=== PATIENT | female | born 1985 | race Caucasian/White ===

== ENCOUNTER 2020-01-02 15:43 | Emergency (ER) | payer SELFPAY ==
[~2020-01-02] VITALS: Ht 160 cm; Wt 49.1 kg
[2020-01-02 15:47] VITALS: TEMP 98.7
[2020-01-02] MEDS ORDERED: VOLTAREN 75 DR75 MG PO (18:05)
[2020-01-02] MEDS ORDERED: FLEXERIL 1010 MG/TAB PO (18:06)
[2020-01-02] MEDS ORDERED: TYLENOL 500MG500 MG PO (18:06)
[2020-01-02] MEDS ORDERED: PROAIR HFA0.09 MG/AC IH (18:07)
[2020-01-02] MEDS ORDERED: ATARAX 25MG25 MG/TAB PO (18:07)
[2020-01-02] MEDS ORDERED: URISTAT ULTRA99.5 MG PO (18:08)
[2020-01-02] MEDS ORDERED: BENTYL 10MG10 MG/CAP PO (18:08)
[2020-01-02] MEDS ORDERED: ASPIRIN E.C. 8181 MG PO (18:09)
[2020-01-02] MEDS ORDERED: PRILOSEC 20MG20 MG PO (18:09)
[2020-01-02] MEDS ORDERED: TENORMIN 2525 MG/TAB PO (18:09)
[2020-01-02] MEDS ORDERED: LANOXIN 0.120.125 MG PO (18:10)
[2020-01-02] MEDS ORDERED: VALTREX1 GM PO (18:10)
[2020-01-02] MEDS ORDERED: ZYRTEC 10MG10 MG PO (18:11)
[2020-01-02] MEDS ORDERED: NATURAL POTASS595 MG (18:11)
[2020-01-02] MEDS ORDERED: ZOFRAN 4MG T4 MG/TAB PO (18:12)
[2020-01-02] MEDS ORDERED: VITAMIN D31000 I1 PO (18:12)
[2020-01-02] MEDS ORDERED: NORCO 325 MG-51 TAB PO (18:22)
[2020-01-02 18:35] VITALS: BP 100/75; PULSE 74
== END 2020-01-02 18:38 | disposition home or self-care (01) ==
LOC: COL.ER 15:43
DX: M25.552 Pain in left hip (principal); G89.29 Other chronic pain; F17.200 Nicotine dependence, unspecified, uncomplicated; Z90.710 Acquired absence of both cervix and uterus; F41.9 Anxiety disorder, unspecified; Z88.6 Allergy status to analgesic agent; Z88.1 Allergy status to other antibiotic agents; Z79.82 Long term (current) use of aspirin

== ENCOUNTER 2020-07-19 09:47 | Emergency (ER) | payer OTHER ==
[~2020-07-19] VITALS: Ht 160 cm; Wt 46.8 kg
[~2020-07-19 09:47] MED LIST: ASPIRIN E.C. 8181 MG PO; ATARAX 25MG25 MG/TAB PO; BENTYL 10MG10 MG/CAP PO; FLEXERIL 1010 MG/TAB PO; LANOXIN 0.120.125 MG PO; NATURAL POTASS595 MG; NORCO 325 MG-51 TAB PO; PRILOSEC 20MG20 MG PO; PROAIR HFA0.09 MG/AC IH; TENORMIN 2525 MG/TAB PO; TYLENOL 500MG500 MG PO; URISTAT ULTRA99.5 MG PO; VALTREX1 GM PO; VITAMIN D31000 I1 PO; VOLTAREN 75 DR75 MG PO; ZOFRAN 4MG T4 MG/TAB PO; ZYRTEC 10MG10 MG PO
[2020-07-19 10:00] VITALS: TEMP 97.5
[2020-07-19 10:47] LABS: BASO % 0.7 % (0.0-2.0); EOS # 0.1 (0.0-0.7); EOS % 1.6 % (0-4.0); GRAN # 2.6 (1.4-6.5); GRAN % 58.8 % (42.2-75.2); HEMATOCRIT 43.5 % (37.0-47.0); HEMOGLOBIN 15.3 g/dl (12.5-16.0); LYMPH # 1.4 (1.2-3.4); LYMPH % 31.3 % (20.0-51.0); MEAN CELL VOLUME 93 fl (80.0-100.0); MEAN CORPUSCULAR HEMOGLOBIN 33 pg (27.0-31.0); MEAN CORPUSCULAR HGB CONC 35 g/dl (33.0-37.0); MEAN PLATELET VOLUME 10.8 fl (7.4-10.4); MONO # 0.3 (0.1-0.6); MONO % 7.4 % (1.7-9.3); PLATELET COUNT 282 K/mm3 (130-400); RED BLOOD COUNT 4.66 M/mm3 (4.10-5.30); REDCELL DISTRIBUTION WIDTH-CV 11.3 % (11.5-14.5)
[2020-07-19 10:57] LABS: ALBUMIN 4.4 gm/dL (3.5-5.0); BILIRUBIN,TOTAL 1.9 mg/dL (0.0-1.0); CALCIUM 9.6 mg/dL (8.4-10.2); CREATININE, serum 0.63 (0.52-1.25); POTASSIUM 4.3 mmol/L (3.4-5.0); TOTAL PROTEIN 7.4 gm/dL (6.4-8.2)
[2020-07-19] MEDS ORDERED: DOXYCYCLINE 10100 MG PO (11:45)
[2020-07-19 11:53] VITALS: BP 96/72; PULSE 68
== END 2020-07-19 11:54 | disposition home or self-care (01) ==
LOC: COL.ER 09:47
PROVIDERS: Physician Assistant
DX: J18.9 Pneumonia, unspecified organism (principal); F17.200 Nicotine dependence, unspecified, uncomplicated; Z20.822 Contact with and (suspected) exposure to COVID-19; Z88.1 Allergy status to other antibiotic agents; Z88.6 Allergy status to analgesic agent; Z88.8 Allergy status to other drugs, medicaments and biological substances; Z79.82 Long term (current) use of aspirin

== ENCOUNTER 2020-12-19 19:42 | Emergency (ER) | payer BC ==
[~2020-12-19] VITALS: Ht 160 cm; Wt 41.4 kg
[~2020-12-19 19:42] MED LIST changes: +DOXYCYCLINE 10100 MG PO
[2020-12-19 20:30] LABS: COLLECTION METHOD CLEAN CATCH
[2020-12-19 20:35] LABS: BASO % 0.7 % (0.0-2.0); EOS # 0.1 (0.0-0.7); EOS % 1.7 % (0-4.0); GRAN # 2.7 (1.4-6.5); GRAN % 50.4 % (42.2-75.2); HEMOGLOBIN 14.3 g/dl (12.5-16.0); LYMPH # 2.1 (1.2-3.4); LYMPH % 39.3 % (20.0-51.0); MEAN CELL VOLUME 92 fl (80.0-100.0); MEAN CORPUSCULAR HEMOGLOBIN 33 pg (27.0-31.0); MEAN CORPUSCULAR HGB CONC 36 g/dl (33.0-37.0); MEAN PLATELET VOLUME 10.3 fl (7.4-10.4); MONO # 0.4 (0.1-0.6); MONO % 7.7 % (1.7-9.3); PLATELET COUNT 269 K/mm3 (130-400); RED BLOOD COUNT 4.33 M/mm3 (4.10-5.30); REDCELL DISTRIBUTION WIDTH-CV 11.6 % (11.5-14.5)
[2020-12-19 20:39] LABS: MUCOUS Present /lpf; PH 5 (5-8); SQUAMOUS EPITHELIAL 0-2 /hpf; URINE APPEARANCE Clear; URINE BACTERIA Rare /hpf; URINE BILIRUBIN Negative (NEGATIVE); URINE BLOOD Negative (NEGATIVE); URINE COLOR Yellow; URINE GLUCOSE Negative (NEGATIVE); URINE KETONE 1+ (NEGATIVE); URINE LEUKOCYTE ESTERASE Negative (NEGATIVE); URINE NITRATE Negative (NEGATIVE); URINE PROTEIN(semi-quant) 1+ (NEGATIVE); URINE RBC 0-2 /hpf; URINE UROBILINOGEN Negative (NEGATIVE)
[2020-12-19 20:48] LABS: ALANINE AMINOTRANSFERASE 11 U/L (4-34); ALBUMIN 4.4 gm/dL (3.5-5.0); ALKALINE PHOSPHATASE 71 U/L (50-136); ANION GAP 9 mmol/L (7-16); AST,SGOT 21 U/L (15-37); BILIRUBIN,TOTAL 1.8 mg/dL (0.0-1.0); BLOOD UREA NITROGEN 12 mg/dL (7-17); CALCIUM 9.3 mg/dL (8.4-10.2); CARBON DIOXIDE 21 mmol/L (22-30); CHLORIDE 111 mmol/L (98-107); GLUCOSE 83 mg/dL (74-106); LIPASE 54 U/L (23-300); POTASSIUM 3.1 mmol/L (3.4-5.0); SODIUM 141 mmol/L (137-145); TOTAL PROTEIN 7.3 gm/dL (6.4-8.2)
[2020-12-19 20:49] LABS: C-REACTIVE PROTEIN < 0.5 mg/dL (0.0-0.9)
[2020-12-19 20:58] LABS: TROPONIN-I < 0.012 ng/mL (0.000-0.035)
[2020-12-19] MEDS ORDERED: K-DUR20 MEQ PO (21:35)
[2020-12-19 22:06] VITALS: BP 92/68; PULSE 87; TEMP 97.9
== END 2020-12-19 22:09 | disposition home or self-care (01) ==
LOC: COL.ER 19:42
PROVIDERS: Nurse Practitioner Primary Care
DX: E87.6 Hypokalemia (principal); F41.9 Anxiety disorder, unspecified; F31.9 Bipolar disorder, unspecified; Z20.822 Contact with and (suspected) exposure to COVID-19; Z79.82 Long term (current) use of aspirin
CPT/HCPCS: J7030

== ENCOUNTER 2021-04-09 20:28 | Emergency (ER) | payer BC ==
[~2021-04-09] VITALS: Ht 160 cm; Wt 40.9 kg
[~2021-04-09 20:28] MED LIST changes: +K-DUR20 MEQ PO
[2021-04-09 21:01] LABS: BASO % 0.6 % (0.0-2.0); EOS # 0.1 K/mm3 (0.0-0.7); EOS % 1.2 % (0.0-4.0); GRAN # 3.9 K/mm3 (1.4-6.5); GRAN % 56.8 % (42.2-75.2); HEMATOCRIT 40.8 % (37.0-47.0); LYMPH # 2.2 K/mm3 (1.2-3.4); MEAN CELL VOLUME 89 fl (80.0-100.0); MEAN CORPUSCULAR HEMOGLOBIN 33 pg (27-31); MEAN CORPUSCULAR HGB CONC 37 g/dl (33.0-37.0); MEAN PLATELET VOLUME 10.4 fl (7.4-10.4); MONO # 0.6 K/mm3 (0.1-0.6); MONO % 9.1 % (1.7-9.3); PLATELET COUNT 337 K/mm3 (130-400); RED BLOOD COUNT 4.61 M/mm3 (4.10-5.30); REDCELL DISTRIBUTION WIDTH-CV 11.6 % (11.5-14.5)
[2021-04-09 21:19] LABS: ALBUMIN 4.2 gm/dL (3.5-5.0); BILIRUBIN,TOTAL 1.5 mg/dL (0.2-1.2); CALCIUM 8.8 mg/dL (8.4-10.2); CREATININE, serum 0.69 mg/dL (0.57-1.11); POTASSIUM 3.4 mmol/L (3.5-4.5); TOTAL PROTEIN 6.9 gm/dL (6.2-8.1)
[2021-04-09] MEDS ORDERED: ZOFRAN ODT4 MG PO (22:30)
[2021-04-09 23:03] VITALS: BP 109/73; PULSE 80; TEMP 98.3
== END 2021-04-09 23:05 | disposition home or self-care (01) ==
LOC: COL.ER 20:28
PROVIDERS: Emergency Medicine
DX: R10.84 Generalized abdominal pain (principal); R06.02 Shortness of breath; F41.9 Anxiety disorder, unspecified; F31.9 Bipolar disorder, unspecified; Z20.822 Contact with and (suspected) exposure to COVID-19; Z79.899 Other long term (current) drug therapy
CPT/HCPCS: J2270; J2405; J7030; Q9967

== ENCOUNTER → 2021-04-21 | Outpatient (CLI) | payer BC ==
[~2021-04-21] MED LIST changes: +ZOFRAN ODT4 MG PO
== END ==
LOC: MC.RAD 13:00
DX: N60.02 Solitary cyst of left breast (principal)

== ENCOUNTER 2021-04-24 12:07 | Emergency (ER) | payer BC ==
[~2021-04-24] VITALS: Ht 160 cm; Wt 40.9 kg
[2021-04-24 13:58] LABS: COLLECTION METHOD CLEAN CATCH
[2021-04-24 14:08] LABS: PH 6 (5-8); SQUAMOUS EPITHELIAL 0-2 /hpf (0-10); URINE APPEARANCE Clear (CLEAR/HAZY); URINE BACTERIA None Seen /hpf (NONE SEEN); URINE BILIRUBIN Negative (NEGATIVE); URINE BLOOD 1+ (NEGATIVE); URINE COLOR Yellow (YELLOW); URINE GLUCOSE Negative (NEGATIVE); URINE KETONE Negative (NEGATIVE); URINE LEUKOCYTE ESTERASE Negative (NEGATIVE); URINE NITRATE Negative (NEGATIVE); URINE PROTEIN(semi-quant) Negative (NEGATIVE)
[2021-04-24 14:10] LABS: MUCOUS Present (NOT PRESENT)
[2021-04-24 14:27] VITALS: TEMP 98.6
[2021-04-24 15:22] VITALS: BP 88/73; PULSE 79
== END 2021-04-24 15:23 | disposition home or self-care (01) ==
LOC: COL.ER 12:07
PROVIDERS: Nurse Practitioner Primary Care
DX: B34.9 Viral infection, unspecified (principal); Z20.822 Contact with and (suspected) exposure to COVID-19; Z88.1 Allergy status to other antibiotic agents
CPT/HCPCS: J7030

== ENCOUNTER → 2021-05-10 | Outpatient (CLI) | payer BC | LOC: MC.RAD 09:48 | DX: N60.02 Solitary cyst of left breast (principal) ==

== ENCOUNTER 2021-08-24 20:48 | Emergency (ER) | payer OTHER ==
[~2021-08-24] VITALS: Ht 160 cm; Wt 38.6 kg
[2021-08-24 20:48] VITALS: TEMP 98.9
[2021-08-24 21:25] LABS: BASO # 0.1 K/mm3 (0.0-0.2); BASO % 0.8 % (0.0-2.0); EOS # 0.2 K/mm3 (0.0-0.7); GRAN % 54.8 % (42.2-75.2); HEMATOCRIT 42.1 % (37.0-47.0); HEMOGLOBIN 15.4 g/dl (12.5-16.0); LYMPH # 2.4 K/mm3 (1.2-3.4); LYMPH % 32.8 % (20.0-51.0); MEAN CELL VOLUME 90 fl (80.0-100.0); MEAN CORPUSCULAR HEMOGLOBIN 33 pg (27-31); MEAN CORPUSCULAR HGB CONC 37 g/dl (33.0-37.0); MEAN PLATELET VOLUME 10.1 fl (7.4-10.4); MONO # 0.7 K/mm3 (0.1-0.6); MONO % 9.3 % (1.7-9.3); PLATELET COUNT 320 K/mm3 (130-400); RED BLOOD COUNT 4.69 M/mm3 (4.10-5.30); REDCELL DISTRIBUTION WIDTH-CV 11.1 % (11.5-14.5)
[2021-08-24 21:27] LABS: INR 1.1 (0.8-3.0); PROTHROMBIN TIME 12.8 SECONDS (9.7-12.8)
[2021-08-24 21:41] LABS: ALBUMIN 4.5 gm/dL (3.5-5.0); CALCIUM 9.3 mg/dL (8.4-10.2); CREATININE, serum 0.72 mg/dL (0.57-1.11); POTASSIUM 3.8 mmol/L (3.5-4.5); TOTAL PROTEIN 7.6 gm/dL (6.2-8.1)
[2021-08-24 22:14] VITALS: BP 97/76; PULSE 63
== END 2021-08-24 22:14 | disposition home or self-care (01) ==
LOC: COL.ER 20:48
PROVIDERS: Emergency Medicine
DX: R20.0 Anesthesia of skin (principal); R51.9 Headache, unspecified; Z87.891 Personal history of nicotine dependence; Z28.311 Partially vaccinated for COVID-19
CPT/HCPCS: J7040

== ENCOUNTER 2021-09-22 14:27 | Emergency (ER) | payer SELFPAY ==
[~2021-09-22] VITALS: Ht 160 cm; Wt 45.5 kg
[2021-09-22 15:26] VITALS: TEMP 98.3
[2021-09-22 17:50] VITALS: BP 115/85; PULSE 76
== END 2021-09-22 17:50 | disposition home or self-care (01) ==
LOC: COL.ER 14:27
DX: M79.605 Pain in left leg (principal); M25.552 Pain in left hip; M54.50 Low back pain, unspecified; G89.29 Other chronic pain; Z79.891 Long term (current) use of opiate analgesic; Z98.890 Other specified postprocedural states

== ENCOUNTER 2021-09-24 14:12 | Emergency (ER) | payer SELFPAY ==
[~2021-09-24] VITALS: Ht 160 cm; Wt 45.5 kg
[2021-09-24 14:16] VITALS: BP 108/76; PULSE 96; TEMP 98
[2021-09-24] MEDS ORDERED: NORCO 325 MG-51 TAB PO (15:22)
== END 2021-09-24 15:36 | disposition home or self-care (01) ==
LOC: COL.ER 14:12
DX: M54.50 Low back pain, unspecified (principal); Z87.891 Personal history of nicotine dependence

== ENCOUNTER 2021-11-04 09:23 | Emergency (ER) | payer SELFPAY ==
[~2021-11-04] VITALS: Ht 154.9 cm; Wt 45.5 kg
[2021-11-04 09:32] VITALS: BP 115/77; TEMP 97.8
[2021-11-04] MEDS ORDERED: AMOXICILLIN 50500 MG PO (09:55)
[2021-11-04 10:28] VITALS: PULSE 65
== END 2021-11-04 10:28 | disposition home or self-care (01) ==
LOC: COL.ER 09:23
DX: J20.9 Acute bronchitis, unspecified (principal)

== ENCOUNTER 2021-11-28 10:02 | Emergency (ER) | payer SELFPAY ==
[~2021-11-28] VITALS: Ht 160 cm; Wt 45.5 kg
[~2021-11-28 10:02] MED LIST changes: +AMOXICILLIN 50500 MG PO
[2021-11-28 10:11] VITALS: TEMP 98.3
[2021-11-28 13:33] LABS: ALBUMIN 4.4 gm/dL (3.5-5.0); CALCIUM 9.6 mg/dL (8.4-10.2); CREATININE, serum 0.7 mg/dL (0.57-1.11); MAGNESIUM 2.1 mg/dL (1.6-2.6); PHOSPHOROUS 2.1 mg/dL (2.3-4.7); POTASSIUM 3.7 mmol/L (3.5-4.5)
[2021-11-28 13:38] LABS: BASO % 0.6 % (0.0-2.0); EOS # 0.1 K/mm3 (0.0-0.7); EOS % 1.8 % (0.0-4.0); GRAN % 54.8 % (42.2-75.2); HEMATOCRIT 42.9 % (37.0-47.0); HEMOGLOBIN 15.2 g/dl (12.5-16.0); LYMPH # 1.7 K/mm3 (1.2-3.4); LYMPH % 31.1 % (20.0-51.0); MEAN CELL VOLUME 92 fl (80.0-100.0); MEAN CORPUSCULAR HEMOGLOBIN 33 pg (27-31); MEAN CORPUSCULAR HGB CONC 35 g/dl (33.0-37.0); MEAN PLATELET VOLUME 9.8 fl (7.4-10.4); MONO # 0.6 K/mm3 (0.1-0.6); MONO % 11.1 % (1.7-9.3); PLATELET COUNT 311 K/mm3 (130-400); RED BLOOD COUNT 4.66 M/mm3 (4.10-5.30)
[2021-11-28 14:16] LABS: ERYTHROCYTE SEDIMENTATION RATE 1 mm/hr (0-20)
[2021-11-28] MEDS ORDERED: PEPCID 20MG TAB20 MG PO (14:32)
[2021-11-28] MEDS ORDERED: PREDNISONE20 MG PO (14:32)
[2021-11-28] MEDS ORDERED: NAPROSYN500 MG PO (14:32)
[2021-11-28 15:19] VITALS: BP 110/68; PULSE 71
[2021-11-29 12:37] LABS: ANA SCREEN with REFLEX Negative (Negative)
== END 2021-11-28 15:27 | disposition home or self-care (01) ==
LOC: COL.ER 10:02
PROVIDERS: Emergency Medicine
DX: M19.032 Primary osteoarthritis, left wrist (principal); M19.031 Primary osteoarthritis, right wrist
CPT/HCPCS: J1885; J7512

== ENCOUNTER 2021-12-16 13:48 | Emergency (ER) | payer SELFPAY ==
[~2021-12-16] VITALS: Ht 160 cm; Wt 45.5 kg
[~2021-12-16 13:48] MED LIST changes: +NAPROSYN500 MG PO; +PEPCID 20MG TAB20 MG PO; +PREDNISONE20 MG PO
[2021-12-16 13:51] VITALS: TEMP 98.3
[2021-12-16 14:59] VITALS: BP 100/73; PULSE 61
== END 2021-12-16 14:59 | disposition home or self-care (01) ==
LOC: COL.ER 13:48
DX: U07.1 COVID-19 (principal); J90 Pleural effusion, not elsewhere classified; Z87.891 Personal history of nicotine dependence; Z73.0 Burn-out

== ENCOUNTER 2021-12-31 15:19 | Emergency (ER) | payer MEDICAID ==
[~2021-12-31] VITALS: Ht 160 cm; Wt 45.5 kg
[2021-12-31 15:23] VITALS: TEMP 98
[2021-12-31 15:59] LABS: BASO % 0.7 % (0.0-2.0); EOS # 0.1 K/mm3 (0.0-0.7); EOS % 2.8 % (0.0-4.0); GRAN # 2.4 K/mm3 (1.4-6.5); GRAN % 52.1 % (42.2-75.2); HEMATOCRIT 39.5 % (37.0-47.0); HEMOGLOBIN 14.2 g/dl (12.5-16.0); LYMPH # 1.5 K/mm3 (1.2-3.4); LYMPH % 32.7 % (20.0-51.0); MEAN CELL VOLUME 91 fl (80.0-100.0); MEAN CORPUSCULAR HEMOGLOBIN 33 pg (27-31); MEAN CORPUSCULAR HGB CONC 36 g/dl (33.0-37.0); MEAN PLATELET VOLUME 10.1 fl (7.4-10.4); MONO # 0.5 K/mm3 (0.1-0.6); MONO % 11.5 % (1.7-9.3); PLATELET COUNT 331 K/mm3 (130-400); RED BLOOD COUNT 4.32 M/mm3 (4.10-5.30); REDCELL DISTRIBUTION WIDTH-CV 11.2 % (11.5-14.5)
[2021-12-31 16:09] LABS: ALANINE AMINOTRANSFERASE 14 U/L (0-55); ALBUMIN 4.3 gm/dL (3.5-5.0); ALKALINE PHOSPHATASE 76 U/L (40-150); ANION GAP 10 mmol/L (7-16); AST,SGOT 18 U/L (5-34); BILIRUBIN,TOTAL 1.8 mg/dL (0.2-1.2); BLOOD UREA NITROGEN 11 mg/dL (7-19); CALCIUM 9.6 mg/dL (8.4-10.2); CARBON DIOXIDE 23 mmol/L (22-29); CHLORIDE 108 mmol/L (98-107); CREATININE, serum 0.71 mg/dL (0.57-1.11); GLUCOSE 84 mg/dL (70-99); POTASSIUM 3.7 mmol/L (3.5-4.5); SODIUM 141 mmol/L (136-145); TOTAL PROTEIN 7.2 gm/dL (6.2-8.1)
[2021-12-31 16:15] LABS: TROPONIN-I < 0.010 ng/mL (0.00-0.033)
[2021-12-31 17:15] VITALS: BP 101/61; PULSE 52
== END 2021-12-31 17:20 | disposition home or self-care (01) ==
LOC: COL.ER 15:19
PROVIDERS: Nurse Practitioner
DX: I95.9 Hypotension, unspecified (principal); R07.2 Precordial pain; Z87.891 Personal history of nicotine dependence
CPT/HCPCS: J7030

== ENCOUNTER 2023-01-20 17:55 | Emergency (ER) | payer MEDICAID ==
[~2023-01-20] VITALS: Ht 160 cm; Wt 48.2 kg
[~2023-01-20 17:55] MED LIST changes: +CYMBALTA 20MG20 MG PO; +LYRICA 75MG CAP75 MG PO; +PRENATAL
[2023-01-20 17:57] VITALS: TEMP 97.7
[2023-01-20] MEDS ORDERED: MEDROL 4MG DOSPA4 MG PO (19:00)
[2023-01-20 19:11] VITALS: BP 108/74; PULSE 76
== END 2023-01-20 19:11 | disposition home or self-care (01) ==
LOC: COL.ER 17:55
DX: M54.16 Radiculopathy, lumbar region (principal); Z79.899 Other long term (current) drug therapy

== ENCOUNTER 2023-03-15 17:23 | Emergency (ER) | payer MEDICAID ==
[~2023-03-15] VITALS: Ht 160 cm; Wt 51.4 kg
[~2023-03-15 17:23] MED LIST changes: +MEDROL 4MG DOSPA4 MG PO
[2023-03-15 17:25] VITALS: TEMP 98.9
[2023-03-15 18:24] LABS: BASO % 0.7 % (0.0-2.0); EOS # 0.2 K/mm3 (0.0-0.7); EOS % 3.1 % (0.0-4.0); GRAN % 54.6 % (42.2-75.2); HEMATOCRIT 39.1 % (37.0-47.0); HEMOGLOBIN 13.9 g/dl (12.5-16.0); LYMPH # 1.8 K/mm3 (1.2-3.4); LYMPH % 32.4 % (20.0-51.0); MEAN CELL VOLUME 92 fl (80.0-100.0); MEAN CORPUSCULAR HEMOGLOBIN 33 pg (27-31); MEAN CORPUSCULAR HGB CONC 36 g/dl (33.0-37.0); MEAN PLATELET VOLUME 10.4 fl (7.4-10.4); MONO # 0.5 K/mm3 (0.1-0.6); PLATELET COUNT 369 K/mm3 (130-400); RED BLOOD COUNT 4.23 M/mm3 (4.10-5.30); REDCELL DISTRIBUTION WIDTH-CV 12.1 % (11.5-14.5)
[2023-03-15 18:27] LABS: COLLECTION METHOD CLEAN CATCH
[2023-03-15 18:44] LABS: ALBUMIN 3.9 gm/dL (3.5-5.0); BILIRUBIN,TOTAL 1.1 mg/dL (0.2-1.2); CALCIUM 8.9 mg/dL (8.4-10.2); CREATININE, serum 0.7 mg/dL (0.57-1.11); POTASSIUM 3.4 mmol/L (3.5-4.5); TOTAL PROTEIN 6.9 gm/dL (6.2-8.1)
[2023-03-15 18:45] LABS: URINE APPEARANCE Clear (CLEAR/HAZY); URINE COLOR Yellow (YELLOW)
[2023-03-15 18:46] LABS: URINE BACTERIA None Seen /hpf (NONE SEEN); URINE BLOOD Negative (NEGATIVE); URINE GLUCOSE Negative (NEGATIVE); URINE KETONE Negative (NEGATIVE); URINE NITRATE Negative (NEGATIVE); URINE PROTEIN(semi-quant) Negative (NEGATIVE); URINE RBC None Seen /hpf (0-2); URINE UROBILINOGEN 0.2 E.U/dL (0.2-1.0)
[2023-03-15 19:39] VITALS: BP 124/83; PULSE 92
== END 2023-03-15 19:45 | disposition home or self-care (01) ==
LOC: COL.ER 17:23
PROVIDERS: Physician Assistant
DX: G43.809 Other migraine, not intractable, without status migrainosus (principal)
CPT/HCPCS: J0780; J1885; J7030

== ENCOUNTER 2023-05-17 18:16 | Emergency (ER) | payer MEDICAID ==
[~2023-05-17] VITALS: Ht 160 cm; Wt 52.3 kg
[2023-05-17 18:24] VITALS: BP 124/81
[2023-05-17] MEDS ORDERED: PREDNISONE50 MG PO (19:04)
[2023-05-17] MEDS ORDERED: Ketorolac 30 MG/ML VIAL IM ONE (19:15)
[2023-05-17 20:02] VITALS: PULSE 87; TEMP 97.9
[2023-05-20] MEDS ORDERED: DOXYCYCLINE HY100 MG PO (04:06)
== END 2023-05-17 20:02 | disposition home or self-care (01) ==
LOC: COL.ER 18:16
DX: M54.16 Radiculopathy, lumbar region (principal)
CPT/HCPCS: J1885; J2360